=== PATIENT | female | born 1995 ===

== ENCOUNTER 2016-03-01 19:34 | Emergency (ER) | payer SELFPAY ==
[2016-03-01] MEDS ORDERED: ZOFRAN ONE (19:54)
[2016-03-01] MEDS ORDERED: ZOFRAN IM ONE (20:02)
--- NOTE | 2016-03-01 20:03 | Emergency Department Report ---
Stated Complaint: ABD PAIN Time Seen by Provider: 03/01/16 19:59 - HPI History of Present Illness: 20-year-old female comes in for vomiting and excruciating abdominal pain. Patient complains of right upper quadrant pain she started vomiting when she got to triage. She reports that the pain started, gradual she thought it was gas so she went ahead and had something to eat which made the pain even worse mother and sister brought her in to be evaluated. Patient vomited in triage. - Exam Physical Exam: sHe is alert and oriented she is appears to be in pain. Abdomen guarding right upper quadrant, right upper quadrant tenderness referred pain. Positive Valdovinos sign. MSE screening note: Focused history and physical exam performed. Due to findings the following was ordered: CBC CMP amylase lipase ultrasound right upper quadrant concern for gallbladder disease patient a bit be evaluated in main ER ED Medical Decision Making - Lab Data Result diagrams: 03/01/16 20:15 ED Disposition for MSE Condition: Stable
[2016-03-01 20:29] LABS: Hemoglobin 13.2 gm/dl (10.1-14.3); Mean Corpuscular HGB Conc 34 % (30-34); Mean Corpuscular Hemoglobin 30 pg (28-32); Mean Corpuscular Volume 87 fl (79-97); Platelet Count 195 K/mm3 (140-440); Red Blood Count 4.48 M/mm3 (3.65-5.03); Red Cell Distribution Width 14.5 % (13.2-15.2); White Blood Count 5.9 K/mm3 (4.5-11.0)
[2016-03-01 20:45] LABS: Alanine Aminotransferase 8 units/L (7-56); Albumin 4.4 g/dL (3.9-5); Albumin/Globulin Ratio 1.3 %; Alkaline Phosphatase 52 units/L (35-129); Amylase 110 units/L (27-131); Anion Gap 18 mmol/L; BUN/Creatinine Ratio 18.33; Bilirubin,Total < 0.2 mg/dL (0.1-1.2); Blood Urea Nitrogen 11 mg/dL (7-17); Calcium 9.2 mg/dL (8.4-10.2); Carbon Dioxide 26 mmol/L (22-30); Chloride 100.1 mmol/L (98-107); Glucose 100 mg/dL (65-100); Lipase 23 units/L (13-60); Potassium 3.4 mmol/L (3.6-5.0); Sodium 141 mmol/L (137-145); Total Protein 7.9 g/dL (6.3-8.2)
--- NOTE | 2016-03-01 21:24 | Ultrasound Report ---
FINAL REPORT PROCEDURE: US ABDOMEN LIMITED TECHNIQUE: Real-time sonography in multiple planes of the gallbladder fossa and CBD with imaging of the adjacent liver, pancreas, and right kidney was performed with image documentation. CPT 12025 HISTORY: ruq pain with vomiting COMPARISON: No prior studies are available for comparison. FINDINGS: Liver: Normal size and echotexture with no evidence of cystic or solid mass lesion. Gallbladder: Fluid filled. No gallstones, wall thickening, pericholecystic fluid, or sonographic Valdovinos's sign . Intrahepatic bile ducts: Normal . Extrahepatic bile ducts: Normal . Pancreas: Normal as visualized with suboptimal depiction of the pancreatic tail. Right kidney: Normal echotexture. No focal renal mass, calculus, or hydronephrosis. Other: No free fluid. IMPRESSION: Normal Examination
--- NOTE | 2016-03-01 21:49 | Ultrasound Report ---
FINAL REPORT PROCEDURE: US PELVIC COMPLETE TECHNIQUE: Real-time transabdominal sonography in multiple planes of the pelvis was performed. The pelvic structures were not optimally visualized. Transvaginal sonography was then performed to better evaluate the structures and/or abnormalities described below with image documentation. Grayscale, color flow Doppler imaging and velocity spectral waveform analysis of the ovaries was employed (duplex imaging). CPT 18648, 88156, and 22711 HISTORY: abdominal pain COMPARISON: No prior studies are available for comparison. FINDINGS: UTERUS Size: 6.5 x 3.2 x 4.8 cm. Endometrial thickness: 6.2 mm. Orientation: anteverted. Cervix: Normal. Fibroids/masses: None. RIGHT Ovary: 2.3 x 2.2 x 1.3 cm. Appearance: Normal. Doppler images: Normal spectral waveforms and color flow. The systolic and diastolic velocities are within normal limits. LEFT Ovary: 3.2 x 1.6 x 2.1 cm. Appearance: Normal. Doppler images: Normal spectral waveforms and color flow. The systolic and diastolic velocities are within normal limits. Pelvic fluid: None. Other: None. IMPRESSION: Normal Examination
--- NOTE | 2016-03-01 21:50 | Ultrasound Report ---
FINAL REPORT PROCEDURE: US PELVIC transvaginal TECHNIQUE: Real-time transvaginal sonography in multiple planes of the pelvis was performed. HISTORY: abdominal pain COMPARISON: No prior studies are available for comparison. FINDINGS: UTERUS Size: 6.5 x 3.2 x 4.8 cm. Endometrial thickness: 6.2 mm. Orientation: anteverted. Cervix: Normal. Fibroids/masses: None. RIGHT Ovary: 2.3 x 2.2 x 1.3 cm. Appearance: Normal. Doppler images: Normal spectral waveforms and color flow. The systolic and diastolic velocities are within normal limits. LEFT Ovary: 3.2 x 1.6 x 2.1 cm. Appearance: Normal. Doppler images: Normal spectral waveforms and color flow. The systolic and diastolic velocities are within normal limits. Pelvic fluid: None. Other: None. IMPRESSION: Normal Examination
[2016-03-01 22:34] LABS: Bilirubin,Urine NEG (Negative); Blood,Urine NEG (Negative); Ketones,Urine NEG (Negative); Leukocyte Esterase,Urine NEG (Negative); Mucus,Urine FEW /HPF; Nitrite,Urine NEG (Negative); Protein,Urine <15 mg/dL mg/dL (Negative); Urobilinogen,Urine < 2.0 mg/dL (<2.0)
[2016-03-02 04:51] VITALS: BP 145/88
--- NOTE | 2016-03-02 17:29 | ED Elopement Review ---
ED Pt Elopement review - Results review Lab results: Laboratory Tests 03/01/16 03/01/16 03/01/16 20:15 20:15 20:15 WBC 5.9 RBC 4.48 Hgb 13.2 Hct 39.0 MCV 87 MCH 30 MCHC 34 RDW 14.5 Plt Count 195 Sodium 141 Potassium 3.4 L Chloride 100.1 Carbon Dioxide 26 Anion Gap 18 BUN 11 Creatinine 0.6 L Estimated GFR > 60 BUN/Creatinine Ratio 18.33 Glucose 100 Calcium 9.2 Total Bilirubin < 0.2 AST 15 ALT 8 Alkaline Phosphatase 52 Total Protein 7.9 Albumin 4.4 Albumin/Globulin Ratio 1.3 Amylase 110 Lipase 23 HCG, Quant < 2 Urine Color Urine Turbidity Urine pH Ur Specific [place] Urine Protein Urine Glucose (UA) Urine Ketones Urine Blood Urine Nitrite Urine Bilirubin Urine Urobilinogen Ur Leukocyte Esterase Urine WBC (Auto) Urine RBC (Auto) U Epithel Cells (Auto) Urine Mucus 03/01/16 22:01 WBC RBC Hgb Hct MCV MCH MCHC RDW Plt Count Sodium Potassium Chloride Carbon Dioxide Anion Gap BUN Creatinine Estimated GFR BUN/Creatinine Ratio Glucose Calcium Total Bilirubin AST ALT Alkaline Phosphatase Total Protein Albumin Albumin/Globulin Ratio Amylase Lipase HCG, Quant Urine Color Straw Urine Turbidity Clear Urine pH 7.0 Ur Specific [place] 1.014 Urine Protein <15 mg/dl Urine Glucose (UA) 50 Urine Ketones Neg Urine Blood Neg Urine Nitrite Neg Urine Bilirubin Neg Urine Urobilinogen < 2.0 Ur Leukocyte Esterase Neg Urine WBC (Auto) 1.0 Urine RBC (Auto) 5.0 U Epithel Cells (Auto) 7.0 Urine Mucus Few - Call Back decision Pt Call Back Decision: No action required
== END 2016-03-02 05:53 | disposition left against medical advice (07) ==
LOC: ED 19:34
DX: R10.11 Right upper quadrant pain (principal); R11.10 Vomiting, unspecified; Z53.21 Procedure and treatment not carried out due to patient leaving prior to being seen by health care provider
CPT/HCPCS: 36415; 76705; 76830; 76856; 80053; 81001; 82150; 83690; 84702; 85027; J2405